=== PATIENT | male | born 1975 | race Hispanic/Latino ===

== ENCOUNTER → 2024-10-11 | Day surgery (SDC) | payer MEDICARE ==
[~2024-10-11] MED LIST: ACTOS15 MG PO; FLONASE ALLERG9.9 ML INH; GABAPENTIN100 MG PO; KEPPRA750 MG PO; LACTATED RINGER'S 1,000 ML ONE; LIDOCAINE HCL 2% LOCAL INJ 5 ML SDV VIAL INJ ONE; LIPITOR20 MG PO; METFORMIN HCL500 MG PO; ONDANSETRON ODT8 MG PO; PROPOFOL IV EMULSION 10 MG/ML 20 ML VIAL ONE; SOLIQUA 100 UNIT3 ML SQ; TEMOZOLOMIDE250 MG PO; ZINC50 M2 PO
[2024-10-11 09:24] LABS: BASOPHILS % 0.5 % (0.0-1.0); EOSINOPHILS # (AUTO) 0.2 (0.0-0.4); EOSINOPHILS % 2.3 % (0.0-6.0); HEMATOCRIT 36.7 % (38.2-49.6); HEMOGLOBIN 12.1 g/dL (14.0-18.0); LYMPHOCYTES # (AUTO) 1.2 (1.0-3.2); LYMPHOCYTES % 18.5 % (18.0-39.1); MEAN CORPUSCULAR VOLUME 91.1 fL (81-99); MONOCYTES # (AUTO) 0.4 (0.2-0.8); MONOCYTES % 6.4 % (4.4-11.3); NEUTROPHILS # (AUTO) 4.7 (2.1-6.9); NEUTROPHILS % 71.8 % (38.7-80.0); PLATELET COUNT 202 x10e3/uL (140-360); RED BLOOD COUNT 4.03 x10e6/uL (4.3-5.7); RED CELL DISTRIBUTION WIDTH 13.7 % (11.7-14.4); WHITE BLOOD COUNT 6.55 x10e3/uL (4.8-10.8)
[2024-10-11 10:29] VITALS: TEMP 97.8
[2024-10-11 10:50] VITALS: BP 115/76; PULSE 77; RESP 17; O2SAT 98
== END | disposition home or self-care (01) ==
LOC: OR 06:37
PROVIDERS: ATTEND Internal Medicine Gastroenterology
DX: Z12.11 Encounter for screening for malignant neoplasm of colon (principal); D12.3 Benign neoplasm of transverse colon; K64.8 Other hemorrhoids; C71.9 Malignant neoplasm of brain, unspecified; E66.01 Morbid (severe) obesity due to excess calories; Z78.9 Other specified health status; E11.9 Type 2 diabetes mellitus without complications; I10 Essential (primary) hypertension; R42 Dizziness and giddiness; F32.A Depression, unspecified; Z79.60 Long term (current) use of unspecified immunomodulators and immunosuppressants; Z79.84 Long term (current) use of oral hypoglycemic drugs; Z79.4 Long term (current) use of insulin; Z79.899 Other long term (current) drug therapy; Z68.42 Body mass index [BMI] 45.0-49.9, adult; Z71.3 Dietary counseling and surveillance; Z92.3 Personal history of irradiation
CPT/HCPCS: 36415; 45385; 82948; 85025; 88305; 93005; J2704; J7121; 45378; J2003